=== PATIENT | female | born 1970 | race Caucasian/White ===

== ENCOUNTER → 2017-02-20 | Outpatient (CLI) | payer BC ==
[~2017-02-20] MED LIST: BCPILLS PO; MISCCAP80 PO; PRENTAB26 PO; PRLSR20 PO
== END | disposition home or self-care (01) ==
LOC: C.PAPS 10:14
PROVIDERS: ATTEND Obstetrics & Gynecology
DX: Z01.419 Encounter for gynecological examination (general) (routine) without abnormal findings (principal)

== ENCOUNTER → 2017-04-08 | Outpatient (CLI) | payer BC ==
[2017-04-08 14:38] LABS: BASO % 0.4 %; BASO ABS # 0.02 K/uL (0-0.2); COMPLETE YES; EOS % 2.9 %; HEMATOCRIT 36.7 % (37-47); IG% 0.2 %; LYMPH % 33.9 %; LYMPH ABS # 1.89 K/uL (1.2-3.4); MEAN CELL VOLUME 91.3 fL (80-100); MEAN CORPUSCULAR HEMOGLOBIN 31.1 pg (25-34); MEAN CORPUSCULAR HGB CONC 34.1 g/dl (32-36); MONO % 6.5 %; NEUT % 56.1 %; PLATELET COUNT 233 K/uL (130-400); RED BLOOD COUNT 4.02 M/uL (4.2-5.4); WHITE BLOOD COUNT 5.57 K/uL (4.8-10.8)
[2017-04-08 14:45] LABS: ALT/SGPT 33 U/L (12-78); AST/SGOT 22 U/L (15-37); BLOOD UREA NITROGEN 11 mg/dl (7-18); BUN/CREATININE RATIO 12.6 (10-20); CALCIUM 8.5 mg/dl (8.5-10.1); CARBON DIOXIDE 28 mmol/L (21-32); CHLORIDE 107 mmol/L (98-107); GLUCOSE 89 mg/dl (70-99); POTASSIUM 3.9 mmol/L (3.5-5.1); SODIUM 141 mmol/L (136-145)
[2017-04-08 14:48] LABS: ALB/GLOB RATIO 0.9 (0.9-2); ALKALINE PHOSPHATASE 47 U/L (45-117)
[2017-04-09 06:23] LABS: ESTIMATED AVERAGE GLUCOSE 120 mg/dl; HA1C FLAG Normal (Normal)
== END | disposition home or self-care (01) ==
LOC: C.LAB1850 12:22
PROVIDERS: ATTEND Nurse Practitioner Family
DX: K21.9 Gastro-esophageal reflux disease without esophagitis (principal); R73.9 Hyperglycemia, unspecified; D64.9 Anemia, unspecified

== ENCOUNTER → 2017-05-27 | Outpatient (CLI) | payer BC ==
--- NOTE | 2017-05-28 13:53 | MAMMOGRAPHY REPORT ---
BILATERAL DIGITAL SCREENING MAMMOGRAM TOMOSYNTHESIS WITH CAD: 05/27/2017 CLINICAL HISTORY: Routine screening. Patient has no complaints. TECHNIQUE: Breast tomosynthesis in addition to standard 2D mammography was performed. Current study was also evaluated with a Computer Aided Detection (CAD) system. COMPARISON: Comparison is made to exam dated: 05/24/2016 mammogram - [facility]. BREAST COMPOSITION: The tissue of both breasts is heterogeneously dense, which may obscure small mas ses. FINDINGS: There are scattered stable benign-appearing micro-calcifications in the breasts. No new lala spicious mass, architectural distortion or cluster of microcalcifications is seen. IMPRESSION: ACR BI-RADS CATEGORY 1: NEGATIVE There is no mammographic evidence of malignancy. A 1 year screening mammogram is recommended. The pa tient will receive written notification of the results. Approximately 10% of breast cancers are not detected with mammography. A negative mammographic report should not delay biopsy if a clinically suggestive mass is present. Norah Campbell M.D. ay/:05/27/2017 16:48:46 Premium Auditor: Grace Hough, [facility] letter sent: Normal 1/2 BI-RADS Code: ACR BI-RADS Category 1: Negative
== END | disposition home or self-care (01) ==
LOC: C.MAMM 16:32
PROVIDERS: ATTEND Obstetrics & Gynecology
DX: Z12.31 Encounter for screening mammogram for malignant neoplasm of breast (principal)

== ENCOUNTER → 2017-11-12 | Outpatient (CLI) | payer BC ==
[2017-11-12 10:06] LABS: BASO % 0.9 %; BASO ABS # 0.06 K/uL (0-0.2); EOS % 2.2 %; EOS ABS # 0.15 K/uL (0-0.5); HEMATOCRIT 41.1 % (37-47); HEMOGLOBIN 13.5 g/dL (12.0-16.0); IG# 0.01 K/uL (0.00-0.02); LYMPH % 26.6 %; LYMPH ABS # 1.83 K/uL (1.2-3.4); MEAN CELL VOLUME 91.9 fL (80-100); MEAN CORPUSCULAR HEMOGLOBIN 30.2 pg (25-34); MEAN CORPUSCULAR HGB CONC 32.8 g/dl (32-36); MEAN PLATELET VOLUME 9.7 fL (7.4-10.4); MONO % 6.8 %; MONO ABS # 0.47 K/uL (0.11-0.59); NEUT % 63.4 %; NEUT ABS # 4.36 K/uL (1.4-6.5); PLATELET COUNT 262 K/uL (130-400); RED CELL DISTRIBUTION WIDTH CV 13.5 % (11.5-14.5); RED CELL DISTRIBUTION WIDTH SD 45.5 fL (36.4-46.3); WHITE BLOOD COUNT 6.88 K/uL (4.8-10.8)
[2017-11-12 10:40] LABS: ALBUMIN 3.5 gm/dl (3.4-5.0); ALT/SGPT 26 U/L (12-78); AST/SGOT 14 U/L (15-37); BLOOD UREA NITROGEN 12 mg/dl (7-18); CALCIUM 8.8 mg/dl (8.5-10.1); CARBON DIOXIDE 27 mmol/L (21-32); CREATININE 1.01 mg/dl (0.60-1.20); GLUCOSE 106 mg/dl (70-99); POTASSIUM 3.9 mmol/L (3.5-5.1); SODIUM 135 mmol/L (136-145)
[2017-11-12 10:43] LABS: ALKALINE PHOSPHATASE 39 U/L (45-117); CHOLESTEROL 174 mg/dl (0-200); LDL CHOLESTEROL CALCULATED 96 mg/dl; TOTAL PROTEIN 7.1 gm/dl (6.4-8.2)
== END | disposition home or self-care (01) ==
LOC: C.LAB1850 09:17
PROVIDERS: ATTEND Nurse Practitioner Family
DX: K21.9 Gastro-esophageal reflux disease without esophagitis (principal); Z13.220 Encounter for screening for lipoid disorders; D64.9 Anemia, unspecified; R73.03 Prediabetes

== ENCOUNTER → 2017-11-27 | Outpatient (CLI) | payer BC ==
[2017-11-28 06:35] LABS: HEMOGLOBIN A1C 5.9 % (4.5-5.6)
[2017-11-28 06:35] LABS: ESTIMATED AVERAGE GLUCOSE 123 mg/dl; HA1C FLAG Normal (Normal)
== END | disposition home or self-care (01) ==
LOC: C.LAB1850 15:24
DX: R73.03 Prediabetes (principal)

== ENCOUNTER → 2018-02-12 | Outpatient (CLI) | payer BC ==
--- NOTE | 2018-02-12 15:55 | DIAGNOSTIC IMAGING REPORT ---
R RIBS UNILATERAL WITH PA CHEST CLINICAL HISTORY: 47 years-old Female presenting with R07.89 Right-sided chest wall pain. TECHNIQUE: PA view of the chest as well as frontal and oblique views of the right ribs were obtained. COMPARISON: Chest x-ray from 06/02/2015. FINDINGS: Atherosclerosis of the aortic arch. Cardiac silhouette normal in size. Lungs and pleural spaces clear. Upper abdomen normal. No displaced rib fracture. IMPRESSION: 1. No acute cardiopulmonary disease. 2. No displaced right rib fracture. Electronically signed by: Levy Cooney M.D. 02/12/2018 3:54 PM Dictated Date/Time: 02/12/2018 3:52 PM
== END | disposition home or self-care (01) ==
LOC: C.RAD1850 15:31
PROVIDERS: ATTEND Nurse Practitioner Family
DX: R07.89 Other chest pain (principal)

== ENCOUNTER → 2018-02-26 | Outpatient (CLI) | payer BC | END | disposition home or self-care (01) | LOC: C.PAPS 09:35 | PROVIDERS: ATTEND Obstetrics & Gynecology | DX: Z01.419 Encounter for gynecological examination (general) (routine) without abnormal findings (principal) ==

== ENCOUNTER → 2018-05-29 | Outpatient (CLI) | payer BC ==
--- NOTE | 2018-06-01 07:44 | MAMMOGRAPHY REPORT ---
BILATERAL DIGITAL SCREENING MAMMOGRAM TOMOSYNTHESIS WITH CAD: 05/29/2018 CLINICAL HISTORY: Routine screening. Patient has no complaints. TECHNIQUE: The study was acquired using full field digital technology and interpreted from soft copy. Breast tomosynthesis in addition to standard 2D mammography was performed. Current study was also ev aluated with a Computer Aided Detection (CAD) system. COMPARISON: Comparison is made to exams dated: 05/27/2017 mammogram and 05/24/2016 mammogram - [facility]. BREAST COMPOSITION: The tissue of both breasts is heterogeneously dense, which may obscure small mass es. FINDINGS: No suspicious masses, calcifications, or areas of architectural distortion are noted in either breast . There has been no significant interval change compared to prior exams. Scattered bilateral benign-a ppearing calcifications are not significantly changed. IMPRESSION: ACR BI-RADS CATEGORY 1: NEGATIVE There is no mammographic evidence of malignancy. A 1 year screening mammogram is recommended.( 019) The patient will receive written notification of the results. Some breast cancers are not detected with mammography. A negative mammographic report should not feliciano y biopsy if a clinically suggestive mass is present. Lali Sam M.D. ah/:05/29/2018 16:45:32 Group Counselor: RT Pearl(Elian)(M)(BD), [facility] letter sent: Normal 1/2 BI-RADS Code: ACR BI-RADS Category 1: Negative
== END | disposition home or self-care (01) ==
LOC: C.MAMM 16:32
PROVIDERS: ATTEND Obstetrics & Gynecology
DX: Z12.31 Encounter for screening mammogram for malignant neoplasm of breast (principal)

== ENCOUNTER 2021-08-20 13:12 | Observation (INO) ==
[2021-08-20 14:35] LABS: Basophils # (auto) 0.04 K/uL (0-0.2); Basophils % (auto) 0.6 %; Eosinophils # (auto) 0.14 K/uL (0-0.5); Eosinophils % (auto) 2.2 %; Hematocrit (blood only) 39.5 % (37-47); Hemoglobin 13.3 g/dL (12.0-16.0); Immature Granulocytes # (auto) 0.01 K/uL (0.00-0.02); Immature Granulocytes % (auto) 0.2 %; Lymphocytes % (auto) 26.6 %; Mean Corpuscular Hemoglobin 31.6 pg (25-34); Mean Corpuscular Hgb Conc 33.7 g/dL (32-36); Mean Corpuscular Volume 93.8 fL (80-100); Mean Platelet Volume 10.4 fL (7.4-10.4); Monocytes # (auto) 0.41 K/uL (0.11-0.59); Monocytes % (auto) 6.4 %; Platelet Count 208 K/uL (130-400); RDW Coefficient of Variation 13.8 % (11.5-14.5); RDW Standard Deviation 47.3 fL (36.4-46.3); Red Blood Count 4.21 M/uL (4.2-5.4)
--- NOTE | 2021-08-20 14:41 | Electrocardiogram Report ---
Test Reason : Blood Pressure : / mmHG Vent. Rate : 100 BPM Atrial Rate : 100 BPM P-R Int : 150 ms QRS Dur : 124 ms QT Int : 392 ms P-R-T Axes : 059 -63 086 degrees QTc Int : 505 ms Normal sinus rhythm Left atrial enlargement Left axis deviation Incomplete left bundle block Abnormal ECG When compared with ECG of 02-JUN-2015 11:37, QRS duration has increased Nonspecific T wave abnormality now evident in Lateral leads QT has lengthened Confirmed by Tano Montesinos ([id number]) on 08/20/2021 2:40:57 PM Referred By: Confirmed By:Tano Montesinos
[2021-08-20] MEDS ORDERED: ASPIRIN CHEW 324 MG PO STA (14:44)
[2021-08-20 14:49] LABS: Partial Thromboplastin Time 26.2 Seconds (21.0-31.0); Prothrombin Time 9.8 Seconds (9.0-12.0)
[2021-08-20 14:53] LABS: Albumin Level 3.1 gm/dl (3.4-5.0); BUN Creatinine Ratio 18.1 (10-20); Calcium 8.4 mg/dl (8.5-10.1); Creatinine Clr Calc Pharmacy 79.3 ml/min; Est GFR (African American) 79.1 ml/min; Est GFR (Non-African American) 68.2 ml/min; Magnesium 2.2 mg/dl (1.8-2.4); Potassium 4.1 mmol/L (3.5-5.1)
--- NOTE | 2021-08-20 14:53 | Emergency Department Note ---
Impression & Plan ACS (acute coronary syndrome), Elevated troponin I level, Complete left bundle branch block (LBBB) ED Provider Note NAME: AMY ROBBINS AGE: 50 SEX: F : 1970 ARRIVES VIA: Walk-In INFORMANT: Patient, ED PROVIDER(S): Tano Pace DO CHIEF COMPLAINT: Chest pain HPI: The patient is a 50-year-old female who presented to the emergency department for an evaluation of chest pain and difficulty breathing. The patient states that over the last few months she has had intermittent episodes of difficulty breathing. She states this began again approximately 1 week ago. She does attend dog shows that she participates in. She states that she is noticed with exertion she becomes very short of breath and states that "I just cannot get a deep breath in". The patient describes no lower extremity swelling or pain. She has no history of DVT or pulmonary embolism. She does have family history for early coronary artery disease with her father. She denies having any fever. She denies having any cough. She states she may have had some URI symptoms which she thought were related to her allergies. The patient states she did not have any pain but when she was walking back from the waiting room she did develop some heaviness and feels though she cannot get a deep breath. The patient has had no exposure to COVID-19 although she has been traveling last few weeks. ROS: See above HPI for pertinent positives & negatives. A total of 10 systems reviewed and were otherwise negative. PAST MEDICAL HISTORY: See Below PAST SURGICAL HISTORY: See Below FAMILY HISTORY: See Below SOCIAL HISTORY: See Below HOME MEDICATIONS: See Below ALLERGIES: See Below VITALS: See Below PHYSICAL EXAMINATION: GENERAL: Patient is awake alert in no acute distress patient is resting comfortably and showing no signs of anxiety EYES: The conjunctivae are clear. The pupils are round and reactive. EARS, NOSE, MOUTH AND THROAT: The nose is without any evidence of any deformity. NECK: The neck is nontender and supple. RESPIRATORY: Normal respiratory effort is noted there is no evidence of wheezing rhonchi or rales CARDIOVASCULAR: Regular rate and rhythm noted there no murmurs rubs or gallops normal S1 normal S2. GASTROINTESTINAL: The abdomen is soft. Abdomen is nontender. PELVIS: The Pelvis is stable. No tenderness to palpation is noted. BACK: No midline tenderness or or step-off noted range of motion in flexion extension as well as rotation no signs of muscle spasm noted MUSCULOSKELETAL/EXTREMITIES: There is no evidence of gross deformity full range of motion is noted in the hips and shoulders. SKIN: There is no obvious evidence of any rash. There are no petechiae, pallor or cyanosis noted. NEUROLOGIC: Patient is awake alert and oriented x3 MEDICAL DECISION MAKING: The patient is a 50-year-old female who presented to the emergency department for an evaluation of difficulty breathing and chest discomfort. The patient mostly noticed shortness of breath especially with exertion. She also describes a tightness in her chest. The patient was found to have a left bundle branch block pattern on her EKG which appeared new compared to earlier tracing. She also had a troponin which was not greater than 1 but was elevated above normal. The patient at this time has no symptoms at rest. Last time she had symptoms was when she was walking back from triage. The patient's D-dimer was negative. I discussed the patient's laboratory and radiographic studies with her. I also discussed her condition with the on-call [facility] hospitalist. I discussed the limitations of the emergency department work-up for chest pain with her. Given her findings I do feel she is at high risk for an acute coronary syndrome as well as an underlying coronary artery lesion. She was started on heparin. I discussed her case with the [facility] spring former. Triage Nursing notes reviewed. Prior medical records reviewed Vital Signs: reviewed and remarkable for elevated blood pressure. Differential diagnosis: Cardiac ischemia, aortic dissection, pulmonary embolism, pneumothorax, pneumonia, pericarditis, myocarditis, esophageal rupture, GERD, cholecystitis, pancreatitis, musculoskeletal, as well as other pathologies. ER treatment provided: See below Diagnostics interpreted by me: ECG: EKG was obtained in the emergency department. My interpretation is sinus rhythm at 100 bpm. There were no ectopy. Poor R wave progression with a new left bundle branch block pattern was noted. This was compared to a tracing from June 022014. The new bundle branch block is new compared to previous tracing. Cardiac Monitoring: An order was placed for continuous cardiac monitoring. The monitor shows a rate of 83 bpm with sinus rhythm. Laboratory studies: As stated above and show below. Imaging studies: See below Consultation(s): 1617: I discussed this case with Dr. Montesinos who is on-call for the [facility] cardiology group. He does recommend Lopressor 25 mg every 8 hours and does recommend that we hold the patient's Metformin with anticipation of possible cardiac catheterization. ED COURSE: Procedures: none PDMP:reviewed and no issues Critical Care: I have personally spent greater than 55 minutes of critical care time in the direct management of this patient. This includes bedside care, interpretation o f diagnostic studies, and testing, discussion with consultants, patient, and family members, and other required patient management activities. This 55 minutes is in excess of all separately billable procedures. Past Med/Surg History Medical History Allergic rhinitis TERI positive Anemia Mallet finger of right finger(s) Prediabetes Seasonal allergies Vertigo Surgical History H/O unilateral oophorectomy History of colposcopy History of cryosurgery History of esophagogastroduodenoscopy History of foot surgery Family History Father Myocardial infarction Heart disease Hypertension Pure hypercholesterolemia Aunt Ovarian cancer Sister Hyperlipidemia Hypertension Mother Hypertension Hx of total thyroidectomy Other Diabetes Denies family history of Prostate cancer Breast cancer Colorectal cancer Social History Smoking Status: Former smoker Second Hand Exposure: No; Do You Dip or Chew Tobacco: No; Tobacco Cessation Education Requested by Patient: No Hx Alcohol Use: Yes Alcohol type: wine Alcohol Intake Frequency Comment: 2-3 week Hx Substance Use: No Preferred Language: Tamazight Communication Ability: Effective Visual Impairment: No Limitations Hearing Ability: Normal Grade Tamper Required: No Beliefs That Will Affect Care: None marital status: Current Living Situation: Spouse current occupational status: employed 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 Other Information That Helps Us Care for You: No Feels Safe at Home: Yes Safety Concerns: Feels Safe At This Time Childhood Exposure to Second-Hand Smoke: No Dental Care, Regularly: Yes Physical Activity Frequency: 3-4 Times per Week Seatbelt Use: always Sunscreen Use: Yes Assistive Devices: Contacts and Glasses Allergies Allergies Allergy/AdvReac Type Severity Reaction Status Date / Time No Known Allergies Allergy Unknown [id number] Verified 08/20/21 15:23 Home Meds Home Medications Medication Instructions Recorded Confirmed lactobacillus combination no.8 3 3,000 mmu cells PO DAILY 10/12/19 08/20/21 billion cell capsule (Adult Probiotic) multivitamin 1 tab PO DAILY 10/12/19 08/20/21 polyethylene glycol 3350 17 17 gm PO DAILY 10/12/19 08/20/21 gram/dose oral powder (Miralax) ipratropium bromide 21 mcg (0.03 2 spray INTNAS TID PRN 08/20/21 08/20/21 %) nasal spray omeprazole 20 mg capsule,delayed 20 mg PO QPM 08/20/21 08/20/21 release Previous Rx's Medication Instructions Recorded L norgest/E estradiol-E estrad 1 tab PO DAILY #91 ea 11/15/20 0.15 mg-30 mcg (84)/10 mcg(7) tabs,3mos diclofenac sodium 75 mg 75 mg PO BID PRN #60 tab 12/20/20 tablet,delayed release ferrous sulfate 142 mg (45 mg 142 mg PO DAILY #90 tab 06/28/21 iron) tablet,extended release (Slow Fe) metformin 500 mg tablet 500 mg PO DAILY #90 tab 07/19/21 Results & Data (ED) Vital Signs Vital Signs - 24 hr 08/20/21 13:16 08/20/21 15:03 08/20/21 15:04 Temperature 36.6 C Temperature Source Temporal Artery Scan Pulse Rate 108 H 91 H Pulse Rate from SpO2 Sensor Respiratory Rate 18 22 18 Respiratory Effort / Characteristics Non-Labored Spontaneous Non-Labored Spontaneous Respiratory Depth Normal Respiratory Pattern Regular Blood Pressure 145/95 H Blood Pressure Mean 111 Pulse Oximetry 96 95 95 Oxygen Delivery Method Room Air Room Air Room Air Sepsis Recent Fever Within 48 Hours No Sepsis New/Unexplained Change in Mental Status No Sepsis Action Taken by Nursing No Action Required 08/20/21 15:05 08/20/21 15:10 08/20/21 15:20 Temperature Temperature Source Pulse Rate 94 H 89 98 H Pulse Rate from SpO2 Sensor 95 H 92 H 98 H Respiratory Rate 23 17 22 Respiratory Effort / Characteristics Respiratory Depth Respiratory Pattern Blood Pressure Blood Pressure Mean Pulse Oximetry 95 96 96 Oxygen Delivery Method Room Air Room Air Room Air Sepsis Recent Fever Within 48 Hours Sepsis New/Unexplained Change in Mental Status Sepsis Action Taken by Nursing 08/20/21 15:30 08/20/21 15:40 08/20/21 15:50 Temperature Temperature Source Pulse Rate 87 94 H 91 H Pulse Rate from SpO2 Sensor 88 93 H 92 H Respiratory Rate 16 17 19 Respiratory Effort / Characteristics Respiratory Depth Respiratory Pattern Blood Pressure Blood Pressure Mean Pulse Oximetry 96 92 95 Oxygen Delivery Method Room Air Room Air Room Air Sepsis Recent Fever Within 48 Hours Sepsis New/Unexplained Change in Mental Status Sepsis Action Taken by Nursing 08/20/21 16:00 08/20/21 16:10 08/20/21 16:20 Temperature Temperature Source Pulse Rate 87 88 102 H Pulse Rate from SpO2 Sensor 88 88 102 H Respiratory Rate 16 17 21 Respiratory Effort / Characteristics Respiratory Depth Respiratory Pattern Blood Pressure Blood Pressure Mean Pulse Oximetry 94 94 94 Oxygen Delivery Method Sepsis Recent Fever Within 48 Hours Sepsis New/Unexplained Change in Mental Status Sepsis Action Taken by Nursing 08/20/21 16:30 08/20/21 16:40 08/20/21 16:50 Temperature Temperature Source Pulse Rate 104 H 97 H 96 H Pulse Rate from SpO2 Sensor 106 H 97 H 96 H Respiratory Rate 18 19 24 Respiratory Effort / Characteristics Respiratory Depth Respiratory Pattern Blood Pressure 152/111 H 158/94 H Blood Pressure Mean 124 115 Pulse Oximetry 96 95 95 Oxygen Delivery Method Room Air Sepsis Recent Fever Within 48 Hours Sepsis New/Unexplained Change in Mental Status Sepsis Action Taken by Nursing 08/20/21 17:00 08/20/21 17:10 08/20/21 17:20 Temperature Temperature Source Pulse Rate 104 H 92 H 100 H Pulse Rate from SpO2 Sensor 103 H 93 H 101 H Respiratory Rate 20 14 20 Respiratory Effort / Characteristics Respiratory Depth Respiratory Pattern Blood Pressure 146/106 H Blood Pressure Mean 119 Pulse Oximetry 95 94 95 Oxygen Delivery Method Room Air Sepsis Recent Fever Within 48 Hours Sepsis New/Unexplained Change in Mental Status Sepsis Action Taken by Shelter Medications Current Medication List: was personally reviewed by me Laboratory Data Attestation: I reviewed the patient's lab results. Result diagrams: 08/20/21 14:23 08/20/21 14:23 Lab Results 08/20/21 08/20/21 08/20/21 Range/Units 14:23 14:23 14:23 WBC 6.40 (4.8-10.8) K/uL RBC 4.21 (4.2-5.4) M/uL Hgb 13.3 (12.0-16.0) g/dL Hct 39.5 (37-47) % MCV 93.8 (80-100) fL MCH 31.6 (25-34) pg MCHC 33.7 (32-36) g/dL RDW Std Deviation 47.3 H (36.4-46.3) fL RDW Coeff of Jin 13.8 (11.5-14.5) % Plt Count 208 (130-400) K/uL MPV 10.4 (7.4-10.4) fL Immature Gran % (Auto) 0.2 % Neut % (Auto) 64.0 % Lymph % (Auto) 26.6 % [place] % (Auto) 6.4 % Eos % (Auto) 2.2 % Baso % (Auto) 0.6 % Neut # (Auto) 4.10 (1.4-6.5) K/uL Lymph # (Auto) 1.70 (1.2-3.4) K/uL [place] # (Auto) 0.41 (0.11-0.59) K/uL Eos # (Auto) 0.14 (0-0.5) K/uL Baso # (Auto) 0.04 (0-0.2) K/uL Immature Gran # (Auto) 0.01 (0.00-0.02) K/uL PT 9.8 (9.0-12.0) Seconds INR 1.0 (0.9-1.1) APTT 26.2 (21.0-31.0) Seconds PTT Ratio 1.0 D-Dimer (0-500) ug/L FEU Sodium 136 (136-145) mmol/L Potassium 4.1 (3.5-5.1) mmol/L Chloride 106 (98-107) mmol/L Carbon Dioxide 23 (21-32) mmol/L Anion Gap 7.0 (3-11) BUN 18 (7-18) mg/dl Creatinine 0.98 (0.6-1.2) mg/dl Est Cr Clr Drug Dosing 79.3 ml/min Est GFR ( Amer) 79.1 ml/min Est GFR (Non-Af Amer) 68.2 ml/min BUN/Creatinine Ratio 18.1 (10-20) Glucose 125 H (70-99) mg/dl Calcium 8.4 L (8.5-10.1) mg/dl Magnesium 2.2 (1.8-2.4) mg/dl Total Bilirubin 0.3 (0.2-1) mg/dl AST 22 (15-37) U/L ALT 30 (12-78) U/L Alkaline Phosphatase 40 L (45-117) U/L Troponin I 0.072 H* (0-0.045) ng/ml Total Protein 6.7 (6.4-8.2) gm/dl Albumin 3.1 L (3.4-5.0) gm/dl Globulin 3.6 (2.5-4.0) gm/dl Albumin/Globulin Ratio 0.9 (0.9-2) HCG, Qual (Negative) COVID-19 Eval Order SARS-CoV-2 (PCR) (Negative) 08/20/21 08/20/21 08/20/21 Range/Units 14:23 15:25 15:25 WBC (4.8-10.8) K/uL RBC (4.2-5.4) M/uL Hgb (12.0-16.0) g/dL Hct (37-47) % MCV (80-100) fL MCH (25-34) pg MCHC (32-36) g/dL RDW Std Deviation (36.4-46.3) fL RDW Coeff of Jin (11.5-14.5) % Plt Count (130-400) K/uL MPV (7.4-10.4) fL Immature Gran % (Auto) % Neut % (Auto) % Lymph % (Auto) % [place] % (Auto) % Eos % (Auto) % Baso % (Auto) % Neut # (Auto) (1.4-6.5) K/uL Lymph # (Auto) (1.2-3.4) K/uL [place] # (Auto) (0.11-0.59) K/uL Eos # (Auto) (0-0.5) K/uL Baso # (Auto) (0-0.2) K/uL Immature Gran # (Auto) (0.00-0.02) K/uL PT (9.0-12.0) Seconds INR (0.9-1.1) APTT (21.0-31.0) Seconds PTT Ratio D-Dimer 410 (0-500) ug/L FEU Sodium (136-145) mmol/L Potassium (3.5-5.1) mmol/L Chloride (98-107) mmol/L Carbon Dioxide (21-32) mmol/L Anion Gap (3-11) BUN (7-18) mg/dl Creatinine (0.6-1.2) mg/dl Est Cr Clr Drug Dosing ml/min Est GFR ( Amer) ml/min Est GFR (Non-Af Amer) ml/min BUN/Creatinine Ratio (10-20) Glucose (70-99) mg/dl Calcium (8.5-10.1) mg/dl Magnesium (1.8-2.4) mg/dl Total Bilirubin (0.2-1) mg/dl AST (15-37) U/L ALT (12-78) U/L Alkaline Phosphatase (45-117) U/L Troponin I (0-0.045) ng/ml Total Protein (6.4-8.2) gm/dl Albumin (3.4-5.0) gm/dl Globulin (2.5-4.0) gm/dl Albumin/Globulin Ratio (0.9-2) HCG, Qual (Negative) COVID-19 Eval Order Covid[facility] at [facility] SARS-CoV-2 (PCR) NEGATIVE (Negative) 08/20/21 Range/Units 16:27 WBC (4.8-10.8) K/uL RBC (4.2-5.4) M/uL Hgb (12.0-16.0) g/dL Hct (37-47) % MCV (80-100) fL MCH (25-34) pg MCHC (32-36) g/dL RDW Std Deviation (36.4-46.3) fL RDW Coeff of Jin (11.5-14.5) % Plt Count (130-400) K/uL MPV (7.4-10.4) fL Immature Gran % (Auto) % Neut % (Auto) % Lymph % (Auto) % [place] % (Auto) % Eos % (Auto) % Baso % (Auto) % Neut # (Auto) (1.4-6.5) K/uL Lymph # (Auto) (1.2-3.4) K/uL [place] # (Auto) (0.11-0.59) K/uL Eos # (Auto) (0-0.5) K/uL Baso # (Auto) (0-0.2) K/uL Immature Gran # (Auto) (0.00-0.02) K/uL PT (9.0-12.0) Seconds INR (0.9-1.1) APTT (21.0-31.0) Seconds PTT Ratio D-Dimer (0-500) ug/L FEU Sodium (136-145) mmol/L Potassium (3.5-5.1) mmol/L Chloride (98-107) mmol/L Carbon Dioxide (21-32) mmol/L Anion Gap (3-11) BUN (7-18) mg/dl Creatinine (0.6-1.2) mg/dl Est Cr Clr Drug Dosing ml/min Est GFR ( Amer) ml/min Est GFR (Non-Af Amer) ml/min BUN/Creatinine Ratio (10-20) Glucose (70-99) mg/dl Calcium (8.5-10.1) mg/dl Magnesium (1.8-2.4) mg/dl Total Bilirubin (0.2-1) mg/dl AST (15-37) U/L ALT (12-78) U/L Alkaline Phosphatase (45-117) U/L Troponin I (0-0.045) ng/ml Total Protein (6.4-8.2) gm/dl Albumin (3.4-5.0) gm/dl Globulin (2.5-4.0) gm/dl Albumin/Globulin Ratio (0.9-2) HCG, Qual Negative (Negative) COVID-19 Eval Order SARS-CoV-2 (PCR) (Negative) Administered Medications Heparin Sodium/Dextrose (Heparin Sodium/Dextrose) 25,000 units in 500 mls @ 26 mls/hr IV .[id number] [facility]; Protocol Stop: 09/19/21 16:29 Last Admin: 08/20/21 16:38 Dose: 1,300 units/hr, 26 mls/hr Documented by: [id number] Cosigned by: [id number] Metoprolol Tartrate (Metoprolol Tartrate 25 Mg Tab) 25 mg PO BID ROBERT Stop: 09/19/21 20:59 Last Admin: 08/20/21 21:33 Dose: 25 mg Documented by: [id number] Pantoprazole Sodium (Pantoprazole 40 Mg Tab) 40 mg PO QPM ROBERT Stop: 09/19/21 20:59 Last Admin: 08/20/21 21:33 Dose: 40 mg Documented by: [id number] Discontinued Medications Aspirin (Aspirin Chew 324 Mg) 324 mg PO NOW STA Stop: 08/20/21 14:45 Last Admin: 08/20/21 15:22 Dose: 324 mg Documented by: [id number] Heparin Sodium (Porcine) (Heparin Sod (Porcine) 1000 Unit/Ml) 5,000 units IV NOW ONE Stop: 08/20/21 16:31 Last Admin: 08/20/21 16:37 Dose: 5,000 units Documented by: [id number] Cosigned by: [id number] Heparin Sodium/Dextrose (Heparin Iv Adult Wt-Based Standard With Bolus Protocol) 1 ea IV NOW STA; Protocol Stop: 08/20/21 16:15 Last Admin: 08/20/21 16:52 Dose: Not Given Documented by: [id number] Metoprolol Tartrate (Metoprolol Tartrate 50 Mg Tab) 25 mg PO NOW STA Stop: 08/20/21 16:18 Last Admin: 08/20/21 16:43 Dose: 25 mg Documented by: [id number] Imaging Data Radiologist's Impression: Chest X-Ray 08/20/21 13:20 XR chest 1V portable HISTORY: Shortness of breath. COMPARISON: Chest 02/12/2018. FINDINGS: The lungs are clear. Cardiac silhouette is normal in size. No pleural effusions. No pneumothorax. IMPRESSION: No acute process. ACT 112: Negative or not required by law. Electronically signed by: Mahendra Savage M.D. 08/20/2021 3:00 PM Discharge Plan Visit Data Chief Complaint: Shortness of Breath/Dyspnea Stated Complaint: SOB,CHEST PRESSURE,REF BY DOC ED Provider: Tano Pace Discharge Problem: ACS (acute coronary syndrome), Elevated troponin I level, Complete left bundle branch block (LBBB) Patient Disposition: Admitted As Inpatient Discharge Instructions Interventions: ED Discharge Assessment Last Done: 08/20/21 19:08
--- NOTE | 2021-08-20 15:01 | XRay Report ---
XR chest 1V portable HISTORY: Shortness of breath. COMPARISON: Chest 02/12/2018. FINDINGS: The lungs are clear. Cardiac silhouette is normal in size. No pleural effusions. No pneumot horax. IMPRESSION: No acute process. ACT 112: Negative or not required by law. Electronically signed by: Mahendra Savage M.D. 08/20/2021 3:00 PM
[2021-08-20 15:06] LABS: D Dimer 410 ug/L FEU (0-500)
[2021-08-20 16:09] LABS: Albumin Globulin Ratio 0.9 (0.9-2); Bilirubin,Total 0.3 mg/dl (0.2-1); Globulin 3.6 gm/dl (2.5-4.0); Total Protein 6.7 gm/dl (6.4-8.2); Troponin I 0.072 ng/ml (0-0.045)
[2021-08-20] MEDS ORDERED: Heparin IV Adult Wt-Based Standard WITH Bolus Protocol IV STA (16:14)
[2021-08-20] MEDS ORDERED: METOPROLOL TARTRATE 50 MG TAB PO STA (16:17)
[2021-08-20] MEDS ORDERED: HEPARIN SOD (PORCINE) 1000 UNIT/ML IV ONE ×2 (16:30)
[2021-08-20] MEDS: HEPARIN SODIUM/DEXTROSE 25,000 UNITS/500 ML BAG IV SCH (16:38)
[2021-08-20 16:58] LABS: Pregnancy Test, Serum Negative (Negative)
--- NOTE | 2021-08-20 17:21 | History & Physical Report ---
Date of Service August 20, 2021 Assessment & Plan (1) Chest pain: Plan: Placed in monitored observation Continue to trend troponins EKG in the morning Check 2D echo Oral Lopressor, 25 mg of Lopressor given the emergency room Full dose aspirin Check fasting lipids ER physician ordering heparin drip, agree with this ER is already communicated with Dr. Montesinos who will see the patient in consultation. Will make patient n.p.o. after midnight and hold Metformin for consideration of cardiac catheterization depending on results (2) Prediabetes: Plan: We will hold Metformin as noted above secondary to possible cardiac catheterization Check hemoglobin A1c (3) GERD (gastroesophageal reflux disease): Plan: Continue omeprazole or pharmacy equivalent History of Present Illness Chief Complaint: SOB/CP Primary Care Provider: Ortiz Rojas III, [place] This is a 50-year-old female with past medical history of GERD and gestational diabetes that presents today with chest pain and shortness of breath. Patient is a decent historian, limited by her anxiety. Patient tells me that over the past several months she has had very brief episodes of dyspnea on exertion. These are typically related to activity but not always. They feel that she is not able to take a full inhalation. They tend to be self-limited. Were not accompanied with other symptoms. However, more recently over the past week or so she has noted the symptoms becoming somewhat more frequent. They are also accompanied by some pressure-like sensation in her chest, as if her lungs are constricted. She was resistant to seeking medical attention until earlier this morning when she woke up with more severe symptoms as previously described. Again, these were self-limited. There was no palpitations, fever or chills, nausea, vomiting, diarrhea, or constipation. However, she was afraid enough to come to the emergency room for further evaluation. On ER work-up, she was found to have a left bundle branch block on her EKG, no old tracing for comparison. She did have a minimally elevated troponin. At this time, patient is being placed in observation for further cardiac monitoring with consideration to cardiac catheterization in the morning. Allergies Allergy/AdvReac Type Severity Reaction Status Date / Time No Known Allergies Allergy Unknown [place] Verified 08/20/21 15:23 Home Medications Medication Instructions Recorded Confirmed Type lactobacillus combination no.8 3 3,000 mmu cells PO DAILY 10/12/19 08/20/21 History billion cell capsule (Adult Probiotic) multivitamin 1 tab PO DAILY 10/12/19 08/20/21 History polyethylene glycol 3350 17 17 gm PO DAILY 10/12/19 08/20/21 History gram/dose oral powder (Miralax) L norgest/E estradiol-E estrad 1 tab PO DAILY #91 ea 11/15/20 08/20/21 Rx 0.15 mg-30 mcg (84)/10 mcg(7) tabs,3mos diclofenac sodium 75 mg 75 mg PO BID PRN #60 tab 12/20/20 08/20/21 Rx tablet,delayed release ferrous sulfate 142 mg (45 mg 142 mg PO DAILY #90 tab 06/28/21 08/20/21 Rx iron) tablet,extended release (Slow Fe) metformin 500 mg tablet 500 mg PO DAILY #90 tab 07/19/21 08/20/21 Rx ipratropium bromide 21 mcg (0.03 2 spray INTNAS TID PRN 08/20/21 08/20/21 History %) nasal spray omeprazole 20 mg capsule,delayed 20 mg PO QPM 08/20/21 08/20/21 History release Past Med/Surg History Medical History Allergic rhinitis TERI positive Anemia Mallet finger of right finger(s) Prediabetes Seasonal allergies Vertigo Surgical History H/O unilateral oophorectomy History of colposcopy History of cryosurgery History of esophagogastroduodenoscopy History of foot surgery Family History Father Myocardial infarction Heart disease Hypertension Pure hypercholesterolemia Aunt Ovarian cancer Sister Hyperlipidemia Hypertension Mother Hypertension Hx of total thyroidectomy Other Diabetes Denies family history of Prostate cancer Breast cancer Colorectal cancer Social History Smoking Status: Never smoker Second Hand Exposure: No; Hx Alcohol Use: Yes Alcohol type: wine Alcohol Intake Frequency Comment: 2-3 week Hx Substance Use: No Preferred Language: Kazakh Communication Ability: Effective Visual Impairment: No Limitations Hearing Ability: Normal marital status: Current Living Situation: Spouse current occupational status: employed 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 Feels Safe at Home: Yes Childhood Exposure to Second-Hand Smoke: No Dental Care, Regularly: Yes Physical Activity Frequency: 3-4 Times per Week Seatbelt Use: always Sunscreen Use: Yes Review of Systems Constitutional: no fever, no chills, no weakness, no weight loss and no weight gain Eyes: as per Subjective / HPI Respiratory: + dyspnea on exertion; no cough, no chest congestion, no dyspnea, no pain with cough and no sputum production Cardiovascular: + chest pain, + chest pain at rest and + dyspnea on exertion; no radiating jaw, neck or arm pain, no orthopnea, no palpitations, no lightheadedness and no edema Gastrointestinal: no abdominal pain, no nausea, no vomiting, no constipation and no diarrhea/loose stools Genitourinary: no dysuria, no difficulty urinating, no urinary frequency, no urinary hesitancy, no urinary urgency and no flank pain Musculoskeletal: no back pain, no neck pain, no joint pain, no stiffness and no myalgia Integumentary: no rash Neurologic: no gait abnormality, no unsteadiness, no falls and no generalized weakness Physical Exam Constitutional: cooperative; no acute distress Neck: trachea midline, no thyromegaly Respiratory: normal respiratory effort Auscultation: lungs clear to auscultation bilaterally; no crackles, no rales, no rhonchi and no wheezes Cardiovascular: Rate/Rhythm: regular rate and regular rhythm Heart Sounds: normal S1 and normal S2 Gastrointestinal (Abdomen): Inspection/Auscultation: abdomen normal to inspection Percussion/Palpation: abdomen soft; abdomen nontender, no guarding, abdomen not rigid and no hepatosplenomegaly Skin: no rashes, warm and dry Psychiatric: Mood: + anxious mood Results & Data Results & Data ([facility]) Vital Signs (Past 12 Hours) Vital Signs Temp Pulse Resp BP Pulse Ox 08/20/21 16:40 97 H 19 158/94 H 95 08/20/21 16:30 104 H 18 152/111 H 96 08/20/21 16:20 102 H 21 94 08/20/21 16:10 88 17 94 08/20/21 16:00 87 16 94 08/20/21 15:50 91 H 19 95 08/20/21 15:40 94 H 17 92 08/20/21 15:30 87 16 96 08/20/21 15:20 98 H 22 96 08/20/21 15:10 89 17 96 08/20/21 15:05 94 H 23 95 08/20/21 15:04 18 95 08/20/21 15:03 91 H 22 95 08/20/21 13:16 36.6 C 108 H 18 145/95 H 96 Laboratory Results Laboratory Results WBC 6.40 K/uL (4.8-10.8) 08/20/21 14:23 RBC 4.21 M/uL (4.2-5.4) 08/20/21 14:23 Hgb 13.3 g/dL (12.0-16.0) 08/20/21 14:23 Hct 39.5 % (37-47) 08/20/21 14:23 MCV 93.8 fL (80-100) 08/20/21 14:23 MCH 31.6 pg (25-34) 08/20/21 14:23 MCHC 33.7 g/dL (32-36) 08/20/21 14:23 RDW Std Deviation 47.3 fL (36.4-46.3) H 08/20/21 14:23 RDW Coeff of Jin 13.8 % (11.5-14.5) 08/20/21 14:23 Plt Count 208 K/uL (130-400) 08/20/21 14:23 MPV 10.4 fL (7.4-10.4) 08/20/21 14:23 Immature Gran % (Auto) 0.2 % 08/20/21 14:23 Neut % (Auto) 64.0 % 08/20/21 14:23 Lymph % (Auto) 26.6 % 08/20/21 14:23 Knott % (Auto) 6.4 % 08/20/21 14:23 Eos % (Auto) 2.2 % 08/20/21 14:23 Baso % (Auto) 0.6 % 08/20/21 14:23 Neut # (Auto) 4.10 K/uL (1.4-6.5) 08/20/21 14:23 Lymph # (Auto) 1.70 K/uL (1.2-3.4) 08/20/21 14:23 Knott # (Auto) 0.41 K/uL (0.11-0.59) 08/20/21 14:23 Eos # (Auto) 0.14 K/uL (0-0.5) 08/20/21 14:23 Baso # (Auto) 0.04 K/uL (0-0.2) 08/20/21 14:23 Immature Gran # (Auto) 0.01 K/uL (0.00-0.02) 08/20/21 14:23 PT 9.8 Seconds (9.0-12.0) 08/20/21 14:23 INR 1.0 (0.9-1.1) 08/20/21 14: APTT 26.2 Seconds (21.0-31.0) 08/20/21 14: PTT Ratio 1.0 08/20/21 14:23 D-Dimer 410 ug/L FEU (0-500) 08/20/21 14:23 Sodium 136 mmol/L (136-145) 08/20/21 14:23 Potassium 4.1 mmol/L (3.5-5.1) 08/20/21 14:23 Chloride 106 mmol/L (98-107) 08/20/21 14:23 Carbon Dioxide 23 mmol/L (21-32) 08/20/21 14:23 Anion Gap 7.0 (3-11) 08/20/21 14:23 BUN 18 mg/dl (7-18) 08/20/21 14:23 Creatinine 0.98 mg/dl (0.6-1.2) 08/20/21 14:23 Est Cr Clr Drug Dosing 79.3 ml/min 08/20/21 14:23 Est GFR ( Amer) 79.1 ml/min 08/20/21 14:23 Est GFR (Non-Af Amer) 68.2 ml/min 08/20/21 14:23 BUN/Creatinine Ratio 18.1 (10-20) 08/20/21 14:23 Glucose 125 mg/dl (70-99) H 08/20/21 14:23 Calcium 8.4 mg/dl (8.5-10.1) L 08/20/21 14:23 Magnesium 2.2 mg/dl (1.8-2.4) 08/20/21 14:23 Total Bilirubin 0.3 mg/dl (0.2-1) 08/20/21 14:23 AST 22 U/L (15-37) 08/20/21 14:23 ALT 30 U/L (12-78) 08/20/21 14:23 Alkaline Phosphatase 40 U/L (45-117) L 08/20/21 14:23 Troponin I 0.072 ng/ml (0-0.045) H* 08/20/21 14:23 Total Protein 6.7 gm/dl (6.4-8.2) 08/20/21 14:23 Albumin 3.1 gm/dl (3.4-5.0) L 08/20/21 14:23 Globulin 3.6 gm/dl (2.5-4.0) 08/20/21 14:23 Albumin/Globulin Ratio 0.9 (0.9-2) 08/20/21 14:23 HCG, Qual Negative (Negative) 08/20/21 16:27 COVID-19 Eval Order Covid19 at [facility] 08/20/21 15:25 SARS-CoV-2 (PCR) NEGATIVE (Negative) 08/20/21 15:25 Impressions Chest X-Ray 08/20/21 13:20 XR chest 1V portable HISTORY: Shortness of breath. COMPARISON: Chest 02/12/2018. FINDINGS: The lungs are clear. Cardiac silhouette is normal in size. No pleural effusions. No pneumothorax. IMPRESSION: No acute process. ACT 112: Negative or not required by law. Electronically signed by: Mahendra Savage M.D. 08/20/2021 3:00 PM PG Care Time/CCT Total # of Minutes Spent Total Time Spent with Patient: Total time spent is greater than 50% in coordination of care (as documented) at patient's floor/unit and/or counseling patient: Coding Level of Care Code INT OBSERVATION CARE 70M LVL 3 Diagnoses Prediabetes R73.03 GERD (gastroesophageal reflux disease) K21.9 Esophagitis presence: without esophagitis Chest pain R07.9 (1) GERD (gastroesophageal reflux disease) Esophagitis presence: without esophagitis Qualified Code(s): K21.9 - Gastro-esophageal reflux disease without esophagitis
[2021-08-20] MEDS ORDERED: ONDANSETRON INJ 2 MG/ML 2 ML VIAL IV PRN (20:00)
[2021-08-20] MEDS ORDERED: ZOLPIDEM TARTRATE 5 MG TAB PO PRN (20:00)
[2021-08-20] MEDS ORDERED: ACETAMINOPHEN 325 MG TAB PO PRN (20:00)
[2021-08-20] MEDS ORDERED: PANTOprazole 40 MG TAB PO SCH (21:00)
[2021-08-20] MEDS: METOPROLOL TARTRATE 25 MG TAB PO SCH (21:33)
[2021-08-20 23:05] LABS: Partial Thromboplastin Time 53.6 Seconds (21.0-31.0)
[2021-08-21 02:05] LABS: Basophils # (auto) 0.04 K/uL (0-0.2); Basophils % (auto) 0.6 %; Eosinophils # (auto) 0.15 K/uL (0-0.5); Eosinophils % (auto) 2.4 %; Hematocrit (blood only) 38.4 % (37-47); Hemoglobin 12.5 g/dL (12.0-16.0); Immature Granulocytes # (auto) 0.01 K/uL (0.00-0.02); Immature Granulocytes % (auto) 0.2 %; Lymphocytes # (auto) 2.24 K/uL (1.2-3.4); Lymphocytes % (auto) 36.2 %; Mean Corpuscular Hemoglobin 30.9 pg (25-34); Mean Corpuscular Hgb Conc 32.6 g/dL (32-36); Mean Corpuscular Volume 94.8 fL (80-100); Mean Platelet Volume 10.3 fL (7.4-10.4); Monocytes # (auto) 0.37 K/uL (0.11-0.59); Neutrophils # (auto) 3.38 K/uL (1.4-6.5); Neutrophils % (auto) 54.6 %; Platelet Count 205 K/uL (130-400); RDW Coefficient of Variation 13.7 % (11.5-14.5); RDW Standard Deviation 47.5 fL (36.4-46.3); Red Blood Count 4.05 M/uL (4.2-5.4); White Blood Count 6.19 K/uL (4.8-10.8)
[2021-08-21 02:22] LABS: BUN Creatinine Ratio 16.1 (10-20); Calcium 8.4 mg/dl (8.5-10.1); Creatinine Clr Calc Pharmacy 74.1 ml/min; Est GFR (African American) 73.6 ml/min; Est GFR (Non-African American) 63.5 ml/min; Magnesium 2.2 mg/dl (1.8-2.4); Potassium 4.1 mmol/L (3.5-5.1)
[2021-08-21 02:26] LABS: Partial Thromboplastin Ratio 1.9
[2021-08-21 02:32] LABS: Troponin I 0.059 ng/ml (0-0.045)
[2021-08-21 07:10] LABS: Estimated Average Glucose 128 mg/dl; Hemoglobin A1C 6.1 % (4.5-5.6)
[2021-08-21] MEDS: METOPROLOL TARTRATE 25 MG TAB PO SCH ×2 (07:29→17:12)
[2021-08-21] MEDS ORDERED: MULTIVITAMIN TAB PO SCH (09:00)
[2021-08-21] MEDS ORDERED: LACTOBACILLUS ACIDOPHILUS 1 GM PACK PO SCH (09:00)
[2021-08-21] MEDS ORDERED: ASPIRIN 325 MG ECTAB PO SCH (09:00)
[2021-08-21] MEDS ORDERED: PERFLUTREN LIPID MICROSPHERE (DEFINITY) IV ONE (09:59)
[2021-08-21] MEDS ORDERED: fentaNYL citrate 100 MCG/2 ML VIAL ONE (11:38)
[2021-08-21] MEDS ORDERED: niCARdipine HCL INJ 2.5 MG/ML 10 ML AMP ONE (11:38)
[2021-08-21] MEDS ORDERED: HEPARIN (PORCINE) 1000 UNIT/ML 10 ML (CATH LAB USE ONLY) ONE (11:38)
[2021-08-21] MEDS ORDERED: MIDAZOLAM HCL 1 MG/ML 2ML VIAL ONE (11:38)
[2021-08-21] MEDS ORDERED: NITROGLYCERIN/D5W 100MCG/ML 20ML SYR ONE (11:39)
--- NOTE | 2021-08-21 12:22 | XCELERA ---
[id number]
--- NOTE | 2021-08-21 12:52 | Cardiology Consultation ---
Date of Consultation August 21, 2021 Assessment & Plan (1) Left ventricular dysfunction: -severe left ventricular dysfunction noted on echocardiogram today. -recommend cardiac catheterization to rule out myocardial ischemia realizing LBBB, exertional dyspnea, and elevated troponin. -will need to introduce beta-elma and ACEI/ARB. -I have informed Jeana Garcia PA-C of the patient. (2) Dyspnea on exertion: -likely secondary to left ventricular dysfunction. -recommend intravenous diuretic. (3) Elevated troponin I level: -mild elevation will be further investigated as described above. (4) Complete left bundle branch block (LBBB): -workup in progress. History of Present Illness Attending Physician: Bhavik Masterson DO History of Present Illness Mrs. Peralta is a 50-year-old female admitted yesterday with chest discomfort, dyspnea, new left bundle branch block. This consultation was ordered to assist in her cardiac management. The patient was in her usual state of health until approximately 1-2 months ago. She began to note dyspnea with vigorous physical activity. However, this became progressive. Over the last 2 weeks, she notices substernal chest pressure when she is short of breath with exertion. There are no other associated symptoms such as nausea, vomiting, diaphoresis, or radiation of the discomfort. On the day of presentation, the patient was awaken from sleep with chest discomfort and dyspnea. Her episode resolved after several minutes. She became quite concerned and presented to the emergency room for further care. On evaluation here, the patient was noted to have a left bundle branch block and a mildly elevated troponin I level. Hospitalization was recommended. The patient has not experienced any recent illnesses. She was vaccinated for the COVID-19 virus. I met the patient in the echocardiogram laboratory. Unfortunately, her study revealed severe left ventricular dysfunction. We have discussed this in great detail and also the need for cardiac catheterization. The patient is in agreement. Currently, she is resting comfortably in bed without complaints. Past medical and surgical history 1. GERD 2. Hyperglycemia 3. Allergic rhinitis 4. Positive TERI Social history and lives with her and children. 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 No tobacco Occasional alcohol Family history Father in his 60s from CHF. Had an [place] in his 50s. Mother at 71 from pancreatic cancer. An older brother has a pacemaker Review of systems A 10 review systems was negative except for that described above. Allergies Allergy/AdvReac Type Severity Reaction Status Date / Time No Known Allergies Allergy Unknown [place] Verified 08/20/21 15:23 Home Medications Medication Instructions Recorded Confirmed Type lactobacillus combination no.8 3 3,000 mmu cells PO DAILY 10/12/19 08/20/21 History billion cell capsule (Adult Probiotic) multivitamin 1 tab PO DAILY 10/12/19 08/20/21 History polyethylene glycol 3350 17 17 gm PO DAILY 10/12/19 08/20/21 History gram/dose oral powder (Miralax) L norgest/E estradiol-E estrad 1 tab PO DAILY #91 ea 11/15/20 08/20/21 Rx 0.15 mg-30 mcg (84)/10 mcg(7) tabs,3mos diclofenac sodium 75 mg 75 mg PO BID PRN #60 tab 12/20/20 08/20/21 Rx tablet,delayed release ferrous sulfate 142 mg (45 mg 142 mg PO DAILY #90 tab 06/28/21 08/20/21 Rx iron) tablet,extended release (Slow Fe) metformin 500 mg tablet 500 mg PO DAILY #90 tab 07/19/21 08/20/21 Rx ipratropium bromide 21 mcg (0.03 2 spray INTNAS TID PRN 08/20/21 08/20/21 History %) nasal spray omeprazole 20 mg capsule,delayed 20 mg PO QPM 08/20/21 08/20/21 History release Patient History Medical History Allergic rhinitis TERI positive Anemia Mallet finger of right finger(s) Prediabetes Seasonal allergies Vertigo Surgical History H/O unilateral oophorectomy History of colposcopy History of cryosurgery History of esophagogastroduodenoscopy History of foot surgery Family History Father Myocardial infarction Heart disease Hypertension Pure hypercholesterolemia Aunt Ovarian cancer Sister Hyperlipidemia Hypertension Mother Hypertension Hx of total thyroidectomy Other Diabetes Denies family history of Prostate cancer Breast cancer Colorectal cancer Social History Smoking Status: Former smoker Second Hand Exposure: No; Do You Dip or Chew Tobacco: No; Tobacco Cessation Education Requested by Patient: No Hx Alcohol Use: Yes Alcohol type: wine Alcohol Intake Frequency Comment: 2-3 week Hx Substance Use: No Preferred Language: Gibraltarian Communication Ability: Effective Visual Impairment: No Limitations Hearing Ability: Normal Conveyor Belt Repairer Required: No Beliefs That Will Affect Care: None marital status: Current Living Situation: Spouse current occupational status: employed 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 HEENT exam is negative. Neck is supple with full carotid upstrokes. There are no carotid bruits. Jugular venous pressure is flat at 90. There is no thyromegaly. Cardiovascular exam reveals a regular rhythm with distant heart sounds. No obvious murmurs. No S3. Lungs are clear without rales, rhonchi, or wheezes. Abdomen is obese without bruits. Extremities reveal intact radial artery pulses bilaterally. There is no peripheral edema. Results & Data ([facility]) Vital Signs (Past 12 Hours) Vital Signs Temp Pulse Resp BP Pulse Ox 08/21/21 11:42 37 C 62 16 115/77 95 08/21/21 07:12 37 C 77 18 127/83 93 08/21/21 03:40 36.9 C 70 16 120/82 93 Laboratory Results CBC notes hemoglobin of 12.5, hematocrit 30.4, white count 6.2, and platelet count of 274161. Electrolytes note a sodium of 139, potassium 4.1, chloride 107, bicarb 27, BUN 17, creatinine 1.04, and glucose of 135. Initial troponin was 0.072 with follow-up values of 0.065, 0.059, and 0.039. LDL cholesterol is 56 with an HDL of 40. Diagnostic Findings EKG notes normal sinus rhythm with a left bundle branch block. Echocardiogram notes severe left ventricular dysfunction with ejection fraction of 20-25%. There is severe global hypokinesis and moderate mitral regurgitation. threat monitoring analyst noted 1 7 beat run of ventricular tachycardia overnight. PG Care Time/CCT Total # of Minutes Spent Total Time Spent with Patient: Total time spent is greater than 50% in coordination of care (as documented) at patient's floor/unit and/or counseling patient: Coding Level of Care Code 90849 Inpt Consult Level 5 Diagnoses Left ventricular dysfunction I51.9 Dyspnea on exertion R06.00 Elevated troponin I level R77.8 Complete left bundle branch block (LBBB) I44.7
--- NOTE | 2021-08-21 13:06 | Pre Anesthesia Assessment ---
Date of Service August 21, 2021 Pre Sedation Assessment Vital Signs Temp Pulse Pulse Resp BP BP Pulse Ox 08/21/21 11:42 98.6 F 62 16 115/77 95 08/21/21 07:12 98.6 F 77 18 127/83 93 08/21/21 03:40 98.4 F 70 16 120/82 93 08/20/21 23:14 98.2 F 72 22 116/78 95 08/20/21 19:32 98.4 F 85 20 142/80 H 98 08/20/21 18:20 83 17 94 08/20/21 18:10 80 19 93 08/20/21 18:00 84 22 143/108 H 94 08/20/21 17:50 90 12 92 08/20/21 17:40 86 18 95 08/20/21 17:30 92 H 14 145/98 H 95 08/20/21 17:20 100 H 20 95 08/20/21 17:10 92 H 14 94 08/20/21 17:00 104 H 20 146/106 H 95 08/20/21 16:50 96 H 24 95 08/20/21 16:40 97 H 19 158/94 H 95 08/20/21 16:30 104 H 18 152/111 H 96 08/20/21 16:20 102 H 21 94 08/20/21 16:10 88 17 94 08/20/21 16:00 87 16 94 08/20/21 15:50 91 H 19 95 08/20/21 15:40 94 H 17 92 08/20/21 15:30 87 16 96 08/20/21 15:20 98 H 22 96 08/20/21 15:10 89 17 96 08/20/21 15:05 94 H 23 95 08/20/21 15:04 18 95 08/20/21 15:03 91 H 22 95 08/20/21 13:16 97.9 F 108 H 18 145/95 H 96 Cardiovascular RRR, no murmur, no edema Respiratory normal respiratory effort, lungs clear to auscultation Pre-Sedation Airway Assessment Smoking Status: Former smoker Hx Sleep Apnea: No Hx Difficult Intubation: No Short, Thick Neck: No Thyromental Distance: > or= 3.5 Finger Breadths Oral Cavity: + WNL Mallampati Class: II ASA: ASA3 NPO Status Date of Last Intake of Fluids: 08/20/21 Time of Last Intake of Fluids: 22:00 Date of Last Intake of Solid Food: 08/20/21 Time of Last Intake of Solid Foods: 22:00 Procedure Planning Contraindications for Sedation: none Current Medications Reviewed: Yes Notes The planned sedation has been discussed with the patient. Informed Consent was obtained. I have identified the patient, determined the appropriateness of sedation and have assessed the patient immediately prior to the procedure. All medicine(s) and interventions are by my order.
--- NOTE | 2021-08-21 13:06 | Post Anesthesia Assessment ---
Date of Service August 21, 2021 Post Sedation Assessment Vital Signs Temp Pulse Pulse Resp BP BP Pulse Ox 08/21/21 11:42 98.6 F 62 16 115/77 95 08/21/21 07:12 98.6 F 77 18 127/83 93 08/21/21 03:40 98.4 F 70 16 120/82 93 08/20/21 23:14 98.2 F 72 22 116/78 95 08/20/21 19:32 98.4 F 85 20 142/80 H 98 08/20/21 18:20 83 17 94 08/20/21 18:10 80 19 93 08/20/21 18:00 84 22 143/108 H 94 08/20/21 17:50 90 12 92 08/20/21 17:40 86 18 95 08/20/21 17:30 92 H 14 145/98 H 95 08/20/21 17:20 100 H 20 95 08/20/21 17:10 92 H 14 94 08/20/21 17:00 104 H 20 146/106 H 95 08/20/21 16:50 96 H 24 95 08/20/21 16:40 97 H 19 158/94 H 95 08/20/21 16:30 104 H 18 152/111 H 96 08/20/21 16:20 102 H 21 94 08/20/21 16:10 88 17 94 08/20/21 16:00 87 16 94 08/20/21 15:50 91 H 19 95 08/20/21 15:40 94 H 17 92 08/20/21 15:30 87 16 96 08/20/21 15:20 98 H 22 96 08/20/21 15:10 89 17 96 08/20/21 15:05 94 H 23 95 08/20/21 15:04 18 95 08/20/21 15:03 91 H 22 95 08/20/21 13:16 97.9 F 108 H 18 145/95 H 96 Recovery Score Activity: Moves 4 extremities Respiration: Deep Breath/Cough Circulation: +/-20% PreAnes Value Consciousness: Fully Awake Oxygen Saturation: O2 needed for >90% Discharge Sedation Level of Care: Fast Track Phase II Post Sedation Plan On clinical assessment, the patient appears to have tolerated the sedation without complications. Patient is recovering as anticipated. Patient will continue to be monitored by nursing and may be discharged when sedation discharge criteria are met per below protocol. Upon Completions of procedure up to 15 minutes continue every 5 minute vital signs and the P.A.R. score; then discharge to a Phase I or Fast Track to Phase II per the following guidelines: * Discharge Patient to appropriate Phase II area if PAR is 8 or greater or return to pre- procedure baseline. The post - procedure orders will be as directed. * If PAR score is less than 8 or not return to pre-procedure baseline then patient will follow Phase I monitoring till PAR is reached for Phase II. The Phase I may be done in procedure room or may call to secure a Phase I area. * If naloxone or flumazenil are used for reversal, hold in Phase I for continued monitoring from when last reversal dose was given for a minimum of 60 minutes or longer pending the nurse and/or physician discretion of patient condition before discharge to Phase II. Please call the Sedation Physician to re-evaluate and complete post-note for discharge to Phase II area. Do NOT discharge from procedure sedation or Phase 1 until post- sedation evaluation note is complete by procedure /sedation MD Sedation Discharge Instructions to be given to the patient at discharge to home.
--- NOTE | 2021-08-21 13:16 | Cardiac Catheterization ---
[facility] Data: Clinical Trials Manager Cardiac Status Clinical evaluation leading to the procedure CAD Presenation: Non STEMI Anginal Classification: CCS IV Heart Failure: NYHA Class: CCS III Cardiogenic Shock within 24 Hours: No Cardiac Arrest within 24 Hours: No Imaging Studies Past 6 Months: Yes Stress Studies Past 6 Months: No Diagnostic Physicians Name: Ramakrishna Marin MD Status: Elective Closure Device Closure Device: Radial Band Recommendations: Medical Therapy and/or Counseling Intraprocedure Events Significant Disection: No Perforation: No Cardiac Cath Procedure Full Procedure Date August 21, 2021 Pre-Procedure Diagnosis Pre-Procedure Diagnosis: Non STEMI and Cardiomyopathy AUC Score AUC Score: 7 Post-Procedure Diagnosis Post-Procedure Diagnosis: Mild CAD and Normal Intracardiac Pressures Procedure(s) Performed Procedure(s) Performed: Coronary Angiography and Left Heart Cath 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 Gives off 3 moderate caliber diagonals without significant disease. Circumflex -medium caliber, no significant disease. OM1, left PLB without disease. RCA -dominant, medium caliber, angiographically normal LVEDP -23 Arterial Closure: TR band Summary: 1. Angiographically normal coronary arteries 2. Elevated left-sided filling pressure (LVEDP 23). Recommendations: Guideline directed medical therapy for nonischemic cardiomyopathy. Additional diuretics as needed Hemodynamics Rest Ao:: 107/73/92 Final Ao: 116/79/100 LV: 110/23 Recommendations Recommendations: Medical Therapy and/or Counseling Specimens Specimens: None Radiation Exposure (mGy) 932 Contrast (mls) 50 Fluids (cc crystalloids) Fluids (cc crystalloids): 50 Drains Drains: None Anesthesia Moderate 2557-4029 Procedural Complication(s) None Disposition PCU I attest to the content of the Intraoperative Record and any orders documented therein. Any exceptions are noted below. [employer] Card Cath Procedure Codes Cardiac Catheterization Procedure 1: Cardiovascular Cath Procedures: 82384 Coronaries and LHC (+/-LV) Moderate Sedation Procedure 1: Sedation/Anesthesia: 01749 Mod Sedation by the same physician;Init15 Min Child Age 5 & Up PG Care Time/CCT Total # of Minutes Spent Total Time Spent with Patient: Total time spent is greater than 50% in coordination of care (as documented) at patient's floor/unit and/or counseling patient:
[2021-08-21] MEDS: HEPARIN SODIUM/DEXTROSE 25,000 UNITS/500 ML BAG IV SCH (14:44)
--- NOTE | 2021-08-21 14:54 | Hospitalist Progress Note ---
Date of Service August 21, 2021 Assessment & Plan (1) Chest pain: Plan: Placed in monitored observation Continue to trend troponins EKG in the morning Check 2D echo Oral Lopressor, 25 mg of Lopressor given the emergency room Full dose aspirin Check fasting lipids ER physician ordering heparin drip, agree with this ER is already communicated with Dr. Montesinos who will see the patient in consultation. Will make patient n.p.o. after midnight and hold Metformin for consideration of cardiac catheterization depending on results (2) Prediabetes: Plan: We will hold Metformin as noted above secondary to possible cardiac catheterization Check hemoglobin A1c (3) GERD (gastroesophageal reflux disease): Plan: Continue omeprazole or pharmacy equivalent Admission and Anticipated Discharge Date Admission Date: August 20, 2021 Results & Data Results & Data ([facility]) Vital Signs (Past 12 Hours) Vital Signs Temp Pulse Resp BP Pulse Ox 08/21/21 14:00 64 16 128/88 97 08/21/21 13:45 54 L 16 123/84 97 08/21/21 11:42 37 C 62 16 115/77 95 08/21/21 07:12 37 C 77 18 127/83 93 08/21/21 03:40 36.9 C 70 16 120/82 93 PG Care Time/CCT Total # of Minutes Spent Total Time Spent with Patient: Total time spent is greater than 50% in coordination of care (as documented) at patient's floor/unit and/or counseling patient: Coding Diagnoses Chest pain R07.9 Prediabetes R73.03 GERD (gastroesophageal reflux disease) K21.9 Esophagitis presence: without esophagitis (1) GERD (gastroesophageal reflux disease) Esophagitis presence: without esophagitis Qualified Code(s): K21.9 - Gastro- esophageal reflux disease without esophagitis
[2021-08-21] MEDS ORDERED: lisinopril 5 MG TAB PO SCH (15:00)
--- NOTE | 2021-08-21 15:25 | Electrocardiogram Report ---
Test Reason : Blood Pressure : / mmHG Vent. Rate : 073 BPM Atrial Rate : 073 BPM P-R Int : 156 ms QRS Dur : 132 ms QT Int : 408 ms P-R-T Axes : 049 -28 151 degrees QTc Int : 449 ms Normal sinus rhythm Left bundle branch block Abnormal ECG When compared with ECG of 20-AUG-2021 13:19, Nonspecific T wave abnormality now evident in Inferior leads QT has shortened Confirmed by Tano Montesinos ([id number]) on 08/21/2021 3:25:15 PM Referred By: REFERRED SELF Confirmed By:Tano Montesinos
--- NOTE | 2021-08-21 16:09 | Discharge Summary ---
Date of Service August 21, 2021 Admission HPI Per Admitting Provider This is a 50-year-old female with past medical history of GERD and gestational diabetes that presents today with chest pain and shortness of breath. Patient is a decent historian, limited by her anxiety. Patient tells me that over the past several months she has had very brief episodes of dyspnea on exertion. These are typically related to activity but not always. They feel that she is not able to take a full inhalation. They tend to be self-limited. Were not accompanied with other symptoms. However, more recently over the past week or so she has noted the symptoms becoming somewhat more frequent. They are also accompanied by some pressure-like sensation in her chest, as if her lungs are constricted. She was resistant to seeking medical attention until earlier this morning when she woke up with more severe symptoms as previously described. Again, these were self-limited. There was no palpitations, fever or chills, nausea, vomiting, diarrhea, or constipation. However, she was afraid enough to come to the emergency room for further evaluation. On ER work-up, she was found to have a left bundle branch block on her EKG, no old tracing for comparison. She did have a minimally elevated troponin. At this time, patient is being placed in observation for further cardiac monitoring with consideration to cardiac catheterization in the morning. Principal Diagnosis Non ischemic cardiomyopathy with systolic heart failure Discharge Exam General: well developed, well nourished, no acute distress, comfortable Neck: supple, trachea midline, normal thyroid Lungs: clear to auscultation bilaterally, normal respiratory effort, no accessory muscle use, no distress Heart: regular S1 and S2, no murmur, peripheral pulses normal, capillary refill normal, no edema Abdomen: soft, NT, ND, + BS, no hepatomegaly, normal to percussion Extremities: normal in appearance, no cyanosis, no petechiae, strength is 5/5 bilaterally Neuro: awake, cooperative, moves all extremities, no focal motor deficits, CN II-XII intact, sensation in extremities intact, normal speech Skin: warm, dry, no rash, normal turgor Psych: Awake, alert oriented x 3, euthymic affect Discharge Data Allergies Allergy/AdvReac Type Severity Reaction Status Date / Time No Known Allergies Allergy Unknown [place] Verified 08/20/21 15:23 Consultations 10/11/21 16:14 ED Decision to Admit Stat 08/20/21 16:17 Consult Cardiology Stat 08/20/21 20:00 Consult Cardiology Routine Procedures Performed Operation Date: 08/21/21 12:00 Actual Procedures s Cineradiography w/Routine Exam - Kal Marin MD p Cath, Left with Cors and Vent - Kal Marin MD Ordered Studies 08/21/21 12:16 CL Cath Imgs for PACS use only Routine Hospital Course (1) Non-ischemic cardiomyopathy: found to have EF of 20-25%, his is new finding explains her dyspnea on exertion, poor exercise tolerance, mild chest burning/discomfort when exerting herself left heart cath without significant coronary disease, thus this is non ischemic 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 25mg BID and started lisinopril 5mg daily will give a script for Lasix 20mg PO to use as needed for fluid retention/weight gain CHF discharge instructions provided, fluid restriction 2000mL/day, salt restriction, importance of daily weights referred to Jeana CLAY with CHF clinic, follow up 08/27 phone call answered all her questions, discussed that with medication compliance this can be managed will likely get repeat echo in a few months to reassess LV function (2) Left ventricular dysfunction: EF is 20-25%, unclear etiology as she has normal coronary arteries follow up closely with cardiology and CHF clinic no evidence of volume overload at this time (3) Dyspnea on exertion: due to systolic dysfunction (4) Complete left bundle branch block (LBBB): likely related to 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 no CAD on cath (5) Chest pain: presented with chest pain, convincing story for angina no stress test, found to have significantly reduced EF left heart cath with mild CAD, no significant stenosis or blockages discomfort more likely related to systolic dysfunction, supply/demand mismatch when exerting herself (6) Prediabetes: resume Metformin (7) GERD (gastroesophageal reflux disease): Continue omeprazole or pharmacy equivalent Total Time Total Time Spent Total Time Spent (In Minutes): 40 Total Time Includes: Examination of the Patient, Discharge Planning, Medication Reconciliation and Communication With Other Providers Discharge Plan Discharge Items Patient Disposition: Home - Self-Care Reason For Visit: CHEST PAIN Discharge Diagnosis: Non ischemic cardiomyopathy Systolic dysfunction, ejection fraction 20-25% Condition on Discharge: Good Goals: take metoprolol and lisinopril as prescribed follow heart failure instructions follow up with heart failure clinic Activity: As commented below Lifting: None Bathing: No limitations Sexual Activity: When tolerated Exercise/Sports: Gradually increase as tolerated Driving/Machine Use: Resume 1 day after discharge Weightbearing: Full weightbearing Non-emergency contact: Primary Care Provider and Laboratory Tech Call non-emergency contact if: you have any medication questions and your symptoms worsen Follow-up/Referrals: Tano Montesinos MD [Physician] - (4-6 weeks) Ortiz Rojas III, CRNP [Primary Care Provider] - (one week) Jeana Garcia PA-C [Physician Time Clerk] - 08/27/21 2:00 pm Diet: Carb Consistent or DM2 and Heart Healthy Fluids: 2000ml (8 cups) Addtl Attending Provider Instructions: Medications: - METOPROLOL: 25mg twice a day, intended to slow down heart rate and decrease stress/strain on heart you will notice decreased exercise tolerance, might see some fatigue with this - LISINOPRIL: 5mg daily, intended to prevent remodeling of heart muscle, help heart recover - LASIX: these are to only take as needed for rapid weight gain/fluid retention, 20mg tablets, call heart failure clinic prior to taking to confirm plan, suspect you will not need these any time soon Systolic dysfunction, ejection fraction 20-25% (normal is 60-65%) left heart cath shows no evidence of coronary disease, so this is non- ischemic cardiomyopathy unclear etiology at this time, could be self limiting but only time will tell important that you take metoprolol and lisinopril as prescribed, cardiology may increase dose as tolerated you should follow a fluid restriction of 2000mL a day, this is all fluids (water, coffee, tea, soda, juice etc) you should weigh yourself every morning, keep track of weight, contact Jeana Garcia if weight goes up by 3 lbs from baseline low salt diet, keep daily intake to less than 2000mg a day gradually increase activity, walking is fine, avoid very strenuous activity until cleared by cardiology for allergies, sinus congestion, avoid any medication with phenylephrine I would recommend the following... - antihistamine such as Claritin or Zyrtec, take these daily while you have symptoms - mucinex 600mg twice a day if you have thick sputum/mucous - steroid nasal spray is also safe, use this as directed but can be obtained over the counter Call 911 and go to the Emergency Room if: * You have tightness or pain in your chest that does not go away with rest or Nitroglycerin * You are very short of breath even with rest Call your doctor if any of the following symptoms or problems start or get worse: * Shortness of breath or difficulty breathing * Wake up at night short of breath * Chest pain * Cough * Swelling of your hands, fee, or legs * More fatigued or tired with your normal activity * Palpitations - sudden fast heart beats WEIGHT * Weigh yourself every morning after using the bathroom. * Use the same scale. * Wear the same amount of clothing. * Write your weight down on your chart. * Call your doctor if you gain more than 2-3 pounds in 1-2 days. MEDICATIONS * Use this discharge instruction sheet for instructions. * Take your medications at the time your doctor ordered. * Do not skip a dose of your medicines. * If you miss a dose of medicine, take as soon as possible, but DO NOT DOUBLE A DOSE. * Read your medicine information when you get home. * Know all of the side effects of your medicine. * Call your doctor's office if you have any side effects. * Be sure all of your doctors know what medicine and herbs you take (including cold, flu, and herbal medicine). * Pain Medicine: If you do not get relief from your pain, please call your doctor for help. Take the following with you to your follow-up doctor appointments: * Weight Chart * Medication List * List of questions Do not drink excessive alcohol, beer or wine. Pending Studies at Discharge: No Stand-Alone Forms: [facility], Smoking Cess[facility] Medications and DC Order Prescriptions: New lisinopril [Zestril] 5 mg Tablet 5 mg PO QAM 30 Days Qty: 30 RF: 3 metoprolol tartrate 25 mg Tablet 25 mg PO BID 30 Days Qty: 60 RF: 3 furosemide 20 mg tablet 20 mg PO DAILY PRN (Reason: weight gain) Qty: 30 RF: 0 Continued L norgest/e.estradiol-e.estrad 0.15 mg-30 mcg (84)/10 mcg (7) tablets,dose pack,3 month 1 tab PO DAILY Qty: 91 RF: 3 Slow Fe 142 mg (45 mg iron) tablet extended release 142 mg PO DAILY Qty: 90 RF: 1 metformin 500 mg tablet 500 mg PO DAILY Qty: 90 RF: 1 multivitamin tablet 1 tab PO DAILY RF: 0 Adult Probiotic 3 billion cell capsule 3,000 mmu cells PO DAILY RF: 0 polyethylene glycol 3350 [Miralax] 17 gram/dose powder 17 gm PO DAILY RF: 0 diclofenac sodium 75 mg tablet,delayed release (DR/EC) 75 mg PO BID PRN (Reason: pain) Qty: 60 RF: 0 omeprazole 20 mg capsule,delayed release(DR/EC) 20 mg PO QPM RF: 0 ipratropium bromide 0.03 % spray,non-aerosol 2 spray INTNAS TID PRN (Reason: Congestion) RF: 0 Discharge Orders: Discharge Order (Routine); Ordered 08/21/21 Ordered By: Bhavik Pulido/Other Patient Handouts: A1C, Prediabetes, 5 Steps for Eating Healthier Admission Data Admit Date/Time: 08/20/21 17:24 Attending Provider: Bhavik Masterson Admit Provider: Nico Myers Primary Care Provider: Ortiz Rojas III Other Providers: Tano Montesinos ; Nico Myers Other Interventions: Discharge Summary Assessment (RN) Last Done: 08/21/21 16:44 Coding Level of Care Code 87000 OBS Care - Discharge Diagnoses Chest pain R07.9 Prediabetes R73.03 GERD (gastroesophageal reflux disease) K21.9 Esophagitis presence: without esophagitis Left ventricular dysfunction I51.9 Complete left bundle branch block (LBBB) I44.7 Non-ischemic cardiomyopathy I42.8 Dyspnea on exertion R06.00
[2021-08-22] MEDS ORDERED: ASPIRIN 81 MG ECTAB PO SCH (09:00)
== END 2021-08-21 17:43 | disposition home or self-care (01) ==
LOC: ED 13:12 → 2S 13:12 → SUATTDRO 17:24 → 2S 19:08